=== PATIENT | female | born 2000 | race African-American/Black ===

== ENCOUNTER 2019-03-24 16:20 | Emergency (ER) | payer SELFPAY ==
[~2019-03-24] VITALS: Ht 162.6 cm; Wt 52.0 kg
[2019-03-24 16:58] VITALS: BP 124/84
[2019-03-24] MEDS ORDERED: LIDOCAINE HCL/PF 1% 10 MG/ML 5ML VIAL IJ ONE (17:00)
[2019-03-24] MEDS ORDERED: IBUPROFEN 600MG TABLET PO ONE (17:00)
[2019-03-24] MEDS ORDERED: BACITRACIN ZINC OINT UDPKT TOP ONE (17:00)
[2019-03-24] MEDS ORDERED: TETANUS, DIPHTHERIA, PERTUSSIS VAC/PF 0.5ML (>7YR OLD) IM ONE (17:00)
== END 2019-03-24 17:21 | disposition home or self-care (01) ==
LOC: ER 16:33
DX: S00.35XA Superficial foreign body of nose, initial encounter (principal); J45.909 Unspecified asthma, uncomplicated; Z88.8 Allergy status to other drugs, medicaments and biological substances; W45.8XXA Other foreign body or object entering through skin, initial encounter; Y93.89 Activity, other specified; Y92.018 Other place in single-family (private) house as the place of occurrence of the external cause
CPT/HCPCS: 30300; 90471; 90715; 99284; J3490; Z7610